=== PATIENT | female | born 1985 | race Caucasian/White ===

== ENCOUNTER 2022-06-15 06:59 | Emergency (ER) | payer OTHER ==
[~2022-06-15] VITALS: Ht 167.6 cm; Wt 90.7 kg
[2022-06-15 07:00] VITALS: BP_SYST 125
--- NOTE | 2022-06-15 07:00 | NUR ---
BROUGHT BACK TO BED #4 VIA WHEELCHAIR AND TRIAGED. REPORT GIVEN TO BHARTI
--- NOTE | 2022-06-15 07:13 | NUR ---
PT BIB AWAKE AND ALERT AOX4, NO SOB OR DISTRESS. PT C/O VERTIGO SINCE THIS MORNING WAKING UP. PT DENIES FALL OR TRAUMA. PT STATE NUASEA. PT DENIES VOMITING And pain. pt denies medical hx. PT HAS LAP BAND SX IN PAST.
--- NOTE | 2022-06-15 07:15 | NUR ---
MD DR IVERSON AT BEDSIDE
[2022-06-15] MEDS ORDERED: MECLIZINE HCL 25 MG TABLET (ANITVERT) PO ONE (07:30)
[2022-06-15] MEDS ORDERED: ONDANSETRON 4 MG ODT TAB PO ONE (07:30)
[2022-06-15] MEDS ORDERED: ONDA-8 TL (08:22)
[2022-06-15] MEDS ORDERED: MECL-109 PO (08:22)
[2022-06-15 08:46] VITALS: BP_SYST 122
--- NOTE | 2022-06-15 08:47 | NUR ---
Patient given written and verbal discharge instructions and verbalizes understanding. ER MD DR IVERSON discussed with patient the results and treatment provided. Patient in stable condition. ID arm band removed. Rx of MECZICINE/ZOFRAN given. Patient educated on pain management and to follow up with PMD. Pain Scale 0/10. Opportunity for questions provided and answered. Medication side effect fact sheet provided.
== END 2022-06-15 08:47 | disposition home or self-care (01) ==
LOC: SED 06:59
DX: H81.10 Benign paroxysmal vertigo, unspecified ear (principal); R11.0 Nausea; J45.909 Unspecified asthma, uncomplicated; Z79.899 Other long term (current) drug therapy
CPT/HCPCS: 99283; J8597; Q0162